=== PATIENT | female | born 1980 | race African-American/Black ===

== ENCOUNTER 2023-07-10 13:39 | Outpatient (AMB) | payer OTHER, SELFPAY ==
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
[2023-07-10 13:48] VITALS: BP 122/70; PULSE 66; O2SAT 97; BMI 23.8
== END 2023-07-10 14:22 | disposition home or self-care (01) ==
PROVIDERS: PCP Internal Medicine; Visit Provider Hospitalist
DX: C34.12 Malignant neoplasm of upper lobe, left bronchus or lung (principal); R06.09 Other forms of dyspnea
CPT/HCPCS: 99205

== ENCOUNTER → 2023-07-10 13:39 | Outpatient (BNVA) | payer OTHER, SELFPAY | PROVIDERS: PCP Internal Medicine; Visit Provider Hospitalist ==

== ENCOUNTER 2023-09-16 16:00 | Emergency (ER) | payer OTHER, SELFPAY ==
--- NOTE | 2023-09-16 16:10 | ED.GENADULT ---
HPI - General Adult General Chief complaint: Upper Respiratory Symptoms Stated complaint: not feeling well, multiple complaints Time Seen by Provider: 09/16/23 18:25 Source: patient Mode of arrival: ambulatory Limitations: no limitations and language barrier (Welsh-speaking medical librarian utilized) History of Present Illness HPI narrative: Patient is a 42 year old female who presents emergency department for evaluation of upper respiratory symptoms, intermittent productive cough with white/yellow phlegm, nasal congestion, fatigue. Symptom onset 1 week ago. Has multiple ill contacts at home. He did outpatient COVID-19 testing which was negative. Denies fevers, chills, chest pain, shortness of breath, difficulty breathing, nausea vomiting, abdominal pain. Reports history of lung cancer s/p radiation/chemo in remission since September of 2020, had outpatient CT imaging 09/02/2023 which was unremarkable by her report Related Data Home Medications Medication Instructions Recorded Confirmed cetirizine 10 mg tablet 10 mg PO DAILY 07/10/23 citalopram 10 mg tablet 10 mg PO DAILY 07/10/23 latanoprost 0.005 % eye drops 1 drp ophthalmic (eye) BEDTIME 07/10/23 Previous Rx's Medication Instructions Recorded azithromycin 250 mg tablet See Rx Instructions PO .COMPLEX #6 09/16/23 tabs Allergies Allergy/AdvReac Type Severity Reaction Status Date / Time Unable to Assess Allergy Verified 09/16/23 16:12 Review of Systems Review of Systems: Yes all other systems are reviewed and are negative [facility] Past Medical History Attestation statement: The following information was validated with the patient. Source: old records reviewed Medical History Dyspnea Social History (Updated 07/10/23 @ 13:55 by Brooke Gutierrez [place]) Patient Tobacco Use Status: Never used Tobacco Advance Directives: No Advance Directives Information Provided: No Physical Exam ED Vital Signs: Vital Signs - 24 hr 09/16/23 16:12 Temperature 98.3 F Pulse Rate 69 Respiratory Rate 18 Blood Pressure 154/89 H Pulse Oximetry 99 Oxygen Delivery Method Room Air BMI result Body Mass Index 23.4 Appearance: Alert.?Oriented to person, place and time. No acute distress.?Normal affect. Eyes: Pupils equal, round and reactive to light.? ENT: Pharynx minimally erythematous, no exudate, no hypertrophy. Uvula midline. No trismus. No drooling.??Bilateral maxillary sinus tenderness upon palpation Neck: Normal inspection.? Neck supple.?? CVS: Heart sounds normal. Normal heart rate and rhythm.? Pulses normal.?? Respiratory: No respiratory distress.? Lung sounds clear to auscultation bilaterally?? Abdomen: Soft and non-tender. Normoactive bowel sounds. Skin: Skin warm and dry.? Normal skin color.? Extremities: No lower extremity edema.? Neuro: Moves all extremities spontaneously. Sensation intact bilaterally. No focal neuro deficits. Ambulates with normal steady gait. Course Course Course Narrative: This is a rapid medical exam. Deferred additional HPI, ROS, PE to primary provider. 42 yo female with history of lung cancer here with complaints of cough, congestion, fatigue, generalized weakness x 1 week. Multiple sick contacts at home. Negative covid yesterday. Will obtain testing for flu/covid/rsv. Declined CXR VSS Medical Decision Making Medical Decision Making MDM Narrative: Patient is a 42 old female presenting to emergency department for evaluation of upper respiratory symptoms as per HPI. At the time my examination she is overall well-appearing, nontoxic, afebrile. Testing for COVID-19/influenza/RSV has resulted as negative. We discussed the possibility of early pneumonia, patient was offered to have chest x-ray imaging she however declines, would defer to avoid radiation. At this time I think this is reasonable, lung sounds are clear bilaterally she is in no respiratory distress. No hypoxia or tachypnea. She does have bilateral maxillary sinus tenderness upon palpation, concerning for acute sinusitis, I did discuss this with patient, she is requesting treatment with azithromycin as this is been most beneficial for her in the past. She reports that she will return back to emergency department or follow-up with her primary care provider should her symptoms worsen. At this time I feel that she is stable for discharge. Discussed worrisome signs and symptoms that would warrant re-evaluation. Differential Diagnosis Differential Diagnoses: The differential diagnosis associated with the presentation includes (As noted above) Lab Data [facility] Lab Attestation statement: I reviewed the patient's lab results. (As noted above) Labs: Lab Results 09/16/23 Range/Units 16:25 Influenza Type A (PCR) NEGATIVE (Negative) Influenza Type B (PCR) NEGATIVE (Negative) RSV RNA Qual (PCR) NEGATIVE (Negative) SARS-CoV-2 RNA (RT-PCR) NEGATIVE (Negative) External Record Review External record reviewed: Outpatient record Tests considered The following testing was considered but not selected: Chest x-ray as noted above Prescription Management I considered prescription management with: Antibiotic Discharge Plan Discharge Clinical Impression: Sinusitis Patient Disposition: Home, Self-Care Instructions: Sinusitis (ED) Prescriptions: New azithromycin 250 mg tablet See Rx Instructions .ROUTE .COMPLEX Qty: 6 0RF Rx Instructions: For 250 mg dose pack: take 500 mg today (day 1), then 250 mg for 4 days (days 2-5) No Action citalopram 10 mg tablet 10 mg PO DAILY cetirizine 10 mg tablet 10 mg PO DAILY latanoprost 0.005 % drops 1 drp ophthalmic (eye) BEDTIME Interventions: ED Discharge Assessment Last Done: 09/16/23 19:12 Discharge Date/Time: 09/16/23 19:12
[2023-09-16 16:12] VITALS: BP 154/89; PULSE 69; RESP 18; TEMP 36.8; O2SAT 99; BMI 23.4
--- NOTE | 2023-09-16 16:26 | MHC.EDTECH ---
Patient rsv /covid swab collected and sent to lab .
[2023-09-16 17:10] LABS: Influenza A PCR NEGATIVE (Negative); Influenza B PCR NEGATIVE (Negative); Resp Syncy Virus RNA Qual PCR NEGATIVE (Negative); SARS COV2 PCR INHOUSE NEGATIVE (Negative)
== END 2023-09-16 19:12 | disposition home or self-care (01) ==
PROVIDERS: Nurse Practitioner Family; Emergency Provider Emergency Medicine; PCP Internal Medicine
DX: J32.9 Chronic sinusitis, unspecified (principal); R05.9 Cough, unspecified; R09.81 Nasal congestion; Z20.822 Contact with and (suspected) exposure to COVID-19; Z20.828 Contact with and (suspected) exposure to other viral communicable diseases
CPT/HCPCS: 0241U; 99282; 99283

== ENCOUNTER 2024-11-17 11:08 | Outpatient (REF) | payer OTHER, SELFPAY ==
[2024-11-18 10:54] LABS: IgA 230 mg/dL (47-310); IgG 1257 mg/dL (600-1640); IgM 94 mg/dL (50-300)
[2024-11-19 11:19] LABS: Immunoglobulin E 70 kU/L (<OR=114)
== END 2024-11-17 11:09 | disposition home or self-care (01) ==
LOC: HO.LAB 11:08
PROVIDERS: PCP Internal Medicine; Visit Provider Hospitalist
DX: C34.12 Malignant neoplasm of upper lobe, left bronchus or lung (principal); R06.09 Other forms of dyspnea; Z92.3 Personal history of irradiation; Z92.21 Personal history of antineoplastic chemotherapy; Z79.899 Other long term (current) drug therapy; Z79.69 Long term (current) use of other immunomodulators and immunosuppressants
CPT/HCPCS: 36415; 82784; 82785; 86787; 99212

== ENCOUNTER 2024-11-17 11:08 | Outpatient (AMB) | payer OTHER, SELFPAY ==
[2024-11-17 11:22] VITALS: BP 130/82; PULSE 60; O2SAT 99; BMI 24.0
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
== END 2024-11-17 12:00 | disposition home or self-care (01) ==
PROVIDERS: PCP Internal Medicine; Visit Provider Hospitalist
DX: C34.12 Malignant neoplasm of upper lobe, left bronchus or lung (principal); R06.09 Other forms of dyspnea
CPT/HCPCS: 99214; G2211

== ENCOUNTER → 2024-11-29 10:58 | Outpatient (BNV) | payer OTHER, SELFPAY | PROVIDERS: PCP Internal Medicine; Visit Provider Internal Medicine | DX: I36.1 Nonrheumatic tricuspid (valve) insufficiency (principal) | CPT/HCPCS: 93306 ==

== ENCOUNTER 2025-03-09 10:09 | Outpatient (AMB) | payer OTHER, SELFPAY ==
[2025-03-09 10:12] VITALS: BP 134/72; PULSE 64; O2SAT 100; BMI 24.0
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
--- OUTSIDE RECORDS SUMMARY | 2025-03-09 11:08 | XMS_ITS | Clinical Summary ---
Author Organization [facility] Address [address] [place] [address] Care Team Providers Care Pot Liner Name Role Phone Unavailable Primary Care Provider Unavailabl e Allergies Active Allergy Reactions Criticality Noted Date Comments Amlodipine Unknown 05/13/2017 Other reaction(s): Other (See Comments), rash and numbness onn whole body Bad circulation & sob, weakness in arms Bad circulation & sob, weakness in arms Bad circulation & sob, weakness in arms Bad circulation & sob, weakness in arms Hydrochlorothiazide Rash,Unknown Low 05/11/2017 Other reaction(s): Rash/Dermatitis Hydrochlorothiazide W-Spironolactone Cough 11/17/2022 Lisinopril 02/01/2021 Other reaction(s): cough for more than 3 months Metoprolol Unknown 09/19/2019 Other reaction(s): Other (See Comments) Medications chlorhexidine (Periogard) 0.12 % solution Place 15 mL into mouth between cheek and gum every 12 (twelve) hours. 05/22/2022 Active ibuprofen 800 MG tablet Take 1 tablet by mouth every 8 (eight) hours. 08/05/2022 Active losartan (Cozaar) 25 MG tablet Take 1 tablet by mouth in the morning. Active Sodium Fluoride (PreviDent) 1.1 % gel brush on teeth two times a day ( am and before bedtime) 08/14/2022 Active Social History Tobacco Use Types Packs/Day Years Used Date Smoking Tobacco: Never Smokeless Tobacco: Never Tobacco Cessation:Counseling Given: Not Answered Alcohol Use Standard Drinks/Week Comments Never 0 (1 standard drink = 0.6 oz pur e alcohol) Comments Unknown Sex and Gender Information Value Date Recorded Sex Assigned at Female 08/25/2022 10:33 AM EDT Legal Sex Female 10:33 AM EDT Gender Identity Female 08/25/2022 10:33 AM EDT Sexual Orientation Don't know 08/25/2022 10 :33 AM EDT Plan of Treatment Health Maintenance Due Date Last Done Comments CT Colonography 1978 Dental Oral Exam 1978 Dental Prophylaxis 1978 Dental X-Ray: Bitewings 1978 Dental X-Ray: Full Mouth 1978 Depression Screening 1978 FIT DNA/Cologuard 1978 FIT 1978 FOBT 1978 HIV Screening 1978 Lipid Panel 1978 SDOH Screening 1978 Sigmoidoscopy 1978 Alcohol/Substance Use Screening 1990 Family Planning (PISQ) 1993 Hepatitis C Screening 1996 Hepatitis B Vaccines (1 of 3 - 19+ 3-dose series) 1997 Pap Smear 12/27/1999 Cervical Cancer Screening 2008 HPV/Cotest 2008 Mammogram 2018 Tobacco Screening 11/17/2023 11/17/2022 COVID-19 Vaccine (3 - 2023-2 5 season) 2024 10/29/2021, 09/28/2021 Influenza Vaccine (#1) 2024 Zoster Vaccines (1 of 2) 2028 DTaP/Tdap/Td Vaccines (2 - T d or Tdap) 06/03/2030 06/03/2020 Colonoscopy 07/21/2032 07/21/2022 Colorectal Cancer Screening 07/21/2032 RSV Patients and Patients Aged 60 years or older (1 - 1-dose 75+ series) 2053 HIB Vaccines Aged Out No longer eligi ble based on patient's age to complete this topic HPV Vaccines Aged Out No longer eligi ble based on patient's age to complete this topic Hepatitis A Vaccines Aged Out No long er eligible based on patient's age to complete this topic IPV Vaccines Aged Out No longer eligi ble based on patient's age to complete this topic Meningococcal B Vaccine Aged Out No l onger eligible based on patient's age to complete this topic Meningococcal Vaccine Aged Out No amrita carly eligible based on patient's age to complete this topic Pneumococcal Vaccine: Pediatrics (0 to 5 Years) and At-Risk Patients (6 to 49) Years) Aged Out No longer eligible b ased on patient's age to complete this topic RSV under 20 months Aged Out No longe r eligible based on patient's age to complete this topic Rotavirus Vaccines Aged Out No longer eligible based on patient's age to complete this topic Insurance [place]
--- OUTSIDE RECORDS SUMMARY | 2025-03-09 11:08 | XMS_ITS | Encounter Summary ---
Author Organization [facility] Address [address] [place] [address] Care Team Providers Care Gas Turbine Assembler Name Role Phone Unavailable Primary Care Provider Unavailabl e Encounter Details Date Type Department Care Team (Latest Contact Info) Description 07/15/2022 Abstract [facility] CONVERSIONS Dental, Provider, DDS Social History Tobacco Use Types Packs/Day Years Used Date Smoking Tobacco: Never Assessed Comments Unknown Sex and Gender Information Value Date Recorded Sex Assigned at Female 08/25/2022 10:33 AM EDT Legal Sex Female 10:33 AM EDT Gender Identity Female 08/25/2022 10:33 AM EDT Sexual Orientation Don't know 08/25/2022 10 :33 AM EDT documented as of this encounter Plan of Treatment Not on file documented as of this encounter Visit Diagnoses Not on filedocumented in this encounter
--- OUTSIDE RECORDS SUMMARY | 2025-03-09 11:08 | XMS_ITS | Clinical Summary ---
[facility] Address [address] [place] [phone] Phone Care Team Providers Care Collection Advisor Name Role Phone Jason Godinez MD Primary Care Provider [phone] Allergies Active Allergy Reactions Criticality Noted Date Comments Amlodipine 05/13/2017 Bad circulation & sob, weakness in arms Hydrochlorothiazide Rash 05/11/2017 Metoprolol 09/19/2019 Medications cetirizine (ZyrTEC) 10 mg tablet TAKE 1 TABLET BY MOUTH DAILY NEEDED FOR ALLERGIES. 09/14/2023 Active hydrOXYzine HCL (ATARAX) 10 mg tablet Take 1 Tablet by mouth at bedtime as needed for Anxiety (insomnia). 07/06/2024 Active citalopram (CeleXA) 20 mg tablet Take 1 tablet (20 mg total) by mouth 1 (one) time each day in the morning. 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 [facility] onc - bronch/brushings showed adenoCA. Dr Garcia, Dr Urena, rad onc Adjustment disorder with anxiety 12/31/2019 Iron deficiency anemia 06/06/2019 Naheed's thyroiditis 06/02/2019 Heart murmur on physical examination 11/17/2017 Personal history of other specified conditions 0 11/17/2017 Overview (10/05/2024): Urethral stenosis Benign essential hypertension 03/16/2017 Thyroid nodule 03/16/2017 Encounters Date Type Department Care Team Description 01/31/2025 9:00 AM EDT Office Visit [address] [phone] Jason Godinez MD Routine physical examination (Primary Dx); Iron deficiency anemia, unspecified iron deficiency anemia type; Vitamin D insufficiency; Screening for diabetes mellitus; Screening, lipid; Primary lung adenocarcinoma, left (CMS/HCC V24, CMS/HCC V28); Chronic cough 01/10/2025 3:30 PM EDT - 01/10/2025 11:59 PM EDT Hospital Encounter [address] [phone] Chronic pain of left heel Discharge Disposition: Home or Self Care 01/10/2025 3:00 PM EDT Office Visit [address] [phone] Stephanie Simmons PA Chronic pain of left heel (Primary Dx); Screening-pulmonary TB 01/09/2025 9:45 AM EDT Office Visit [facility] [address] [place] [address] Seema Vaughan, KAISERM Encounter for annual routine gynecological examination (Primary Dx) 01/06/[address] [phone] Jason Godinez MD TB Test from Last 3 Months Immunizations Name Administration Dates Next Due PPD Test 11/09/2019 [place] SARS-CoV-2 COVID-19, mRNA, LNP-S, preservative free 10/29/2021,09/28/2021 Surgical History Surgery Date Site/Laterality Comments TUBAL LIGATION PROCEDURE: HISTORICAL TUBAL LIGATION SECTION PROCEDURE: HISTORICAL ; COMMENT: x2 CYSTOSCOPY 2011 PROCEDURE: [place] CYSTOURETHROSCOPY; COMMENT: about 2011; in [place] OTHER SURGICAL HISTORY 02/2021 Right PROCEDURE: BREAST MASS CORE BIOPSY SPCMN PATHOLGY EXAM; COMMENT: benign- OTHER SURGICAL HISTORY PROCEDURE: PULMONOLOGY BRONCHOSCOPY OTHER SURGICAL HISTORY 12/2022 Left PROCEDURE: BREAST MASS CORE BIOPSY SPCMN PATHOLGY EXAM; COMMENT: benign calicifications Medical History Medical History Date Comments HTN (hypertension) DX:HTN (hyper tension) Urethral stenosis 11/17/2017 DX:Urethral st enosis Heart murmur on physical examination 11/17/2017 DX:Heart murmur on physical examination Thyroid nodule 03/16/2017 DX:Thyroid nodul e Benign essential hypertension 03/16/2017 DX :Benign essential hypertension Prematurity DX:Prematurity; COMMENT: born at 6 mos AOG, weighed 1.5 lb at 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 Iron deficiency anemia 06/06/2019 DX:Iron d eficiency anemia H/O: lung cancer 06/2020 DX:H/O: lung ca ncer Chicken pox 09/2024 Family History Medical History Relation Name Comments Neurological Disorder Father Hypertension Mother DM Breast cancer Neg Hx Colon cancer Neg Hx Ovarian cancer Neg Hx Relation Name Status Comments Father Alive Mother Alive Social History Tobacco Use Types Packs/Day Years Used Date Smoking Tobacco: Never Smokeless Tobacco: Never Tobacco Cessation:Counseling Given: Not Answered Alcohol Use Standard Drinks/Week Comments Not Currently 0 (1 standard drink = 0.6 oz pur e alcohol) Housing Instability Answer Date Recorde d Are you worried that in the next 2 months you may not have stable housing? No 01/31/2025 Food Access & Nutrition Answer Date Rec orded Do you have access to a vari ety of food including fruits and vegetables? Yes 01/31/2025 Access to Healthcare Answer Date Record ed Within the last 3 months, nicko schuster many times did you visit the emergency department for your medical care? 0 01/31/2025 Health Literacy Answer Date Recorded How often do you need to hav e someone help you when you read instructions, pamphlets, or other written material from your doctor or pharmacy? Never 01/31/2025 Caregiver: How often do you need to have someone help you when you read instructions, pamphlets, or other written material from your doctor or pharmacy? Not on file 01/31/2025 Financial Risk Answer Date Recorded How hard is it for you to pa y for the very basics like food, housing, medical care, and air conditioning / heating? Not very hard 01/31/2025 Transportation Answer Date Recorded Has the lack of transportati on kept you from meetings, work, or from getting things needed for daily living? No Has the lack of transportati on kept you from medical appointments or from getting medications? No 01/31/2025 Social Isolation Answer Date Recorded How often do you feel lonely or isolated from those around you? Sometimes 01/31/2025 Food Risk Answer Date Recorded Within the past 12 months we worried whether our food would run out before we got money to buy more. Never true 01/31/2025 Within the past 12 months th e food we bought just didn't last and we didn't have money to get more. Never true 01/31/2025 Dependent Care Answer Date Recorded Do you need help finding or paying for care for your loved ones. For example, child & adolescent psychiatrist or elderly care for an older adult? No 01/31/2025 Education Answer Date Recorded Do you think completing more education or training, like finishing a GED, going to college, or learning a trade, would be helpful for you? Yes 01/31/2025 Employment and Income Answer Date Recor ded During the last four weeks, have you been actively looking for work? Yes 01/31/2025 Living Situation Answer Date Recorded What is your living situation? 0 01/31/2025 Comments No Sex and Gender Information Value Date Recorded Sex Assigned at Not on file Legal Sex Female 10:06 AM EST Gender Identity Not on file Sexual Orientation Not on file Obstetrics History Para Term AB IAB SAB Ectopic Multiple Livin g Live Births 2 2 2 2 2 Date Outcome GA Total Labor Labor/2nd/3rd Weight Sex Type Anes PTL Leslie A1 A5 Name Clin Term Vag-S pont Living Term Vag-S pont Living Last Filed Vital Signs Vital Sign Reading Time Taken Comments Blood Pressure 114/70 01/31/2025 9:10 AM EDT Pulse 64 01/31/2025 9:10 AM EDT Temperature 36.8 ??C (98.3 ??F) 01/31/2025 9:10 AM ED T Respiratory Rate - - Oxygen Saturation 98% 10/12/2024 11:05 AM EST Inhaled Oxygen Concentration - - Weight 63 kg (139 lb) 01/31/2025 9:10 AM EDT Height 158.1 cm (5' 2.25 ) 01/31/2025 9:10 AM ED T Body Mass Index 25.22 01/31/2025 9:10 AM EDT Plan of Treatment Upcoming Encounters Date Type Department Care Team (Late st Contact Info) Description 03/29/2025 1:00 PM EDT Consult Orthopedic Surgery - [place] [id number] [phone] Gerard Jose, DPM [address] [address] 08/14/2025 4:30 PM EDT Office Visit Adult Medicine [address] [phone] Jason Godinez MD [address] [place] [phone] Health Maintenance Due Date Last Done Comments Hepatitis B Vaccines (1 of 3 - 19+ 3-dose series) 1997 Pneumococcal Vaccine: Pediatrics (0 to 5 Years) and At-Risk Patients (6 to 64 Years) (1 of 2 - PCV) 1997 COVID-19 Vaccine (3 - Pfizer risk series) 11/26/2021 10/29/2021, 09/28/2021 Colorectal Cancer Screening: Colonoscopy 10/04/2022 HIV Screening 10/04/2022 Hepatitis C Screening 10/04/2022 Breast Cancer Screening 02/21/2023 02/21/2021 Influenza Vaccine (Season Ended) 2025 Hypertension/CHF/CAD Annual BMP Blood Test 11/16/2025 11/16/2024, 06/15/2024, 06/15/2024, Additional history exists Depression Screening 01/31/2026 01/31/2025, 05/10/20 Social Influencers of Health Screening 01/31/2026 01/31/2025 Cholesterol Screening (Lipid Panel) 03/09/2028 03/09/2023 Cervical Cancer Screening: HPV 01/09/2030 01/09/2025, 04/17/2021 DTaP,Tdap,and Td Vaccines (2 - Td or Tdap) 06/03/2030 06/03/2020 Varicella Vaccines Aged Out 10/12/2024 No longer eligible based on patient's age to complete this topic HIB Vaccines Aged Out No longer eligi [...] on patient's age to complete this topic MMR Vaccines Aged Out No longer eligi ble based on patient's age to complete this topic Meningococcal ACWY Vaccine Aged Out N o longer eligible based on patient's age to complete this topic Meningococcal B Vaccine Aged Out No l onger eligible based on patient's age to complete this topic RSV Immunization Patients Under 20 months Aged Out No longer eligible based on patient's age to complete this topic Procedures Procedure Name Priority Date/Time Associated Diagnosis Comments INTERFERON GAMMA INTERPRETATION Routine 01/10/2025 4:26 PM EDT Screening-pulmonary TB INTERFERON GAMMA ANTIGEN 2 Routine 01/10/2025 4:26 PM EDT Screening-pulmonary TB INTERFERON GAMMA ANTIGEN 1 Routine 01/10/2025 4:26 PM EDT Screening-pulmonary TB INTERFERON GAMMA MITOGEN Routine 01/10/2025 4:26 PM EDT Screening-pulmonary TB INTERFERON GAMMA NIL Routine 01/10/2025 4:26 PM EDT Screening-pulmonary TB INTERFERON GAMMA FOR TB, QUALITATIVE Routine 01/10/2025 4:26 PM EDT Screening-pulmonary TB XR FOOT 3+ VIEWS LEFT Routine 01/10/2025 3:52 PM EDT Chronic pain of left heel PAP SMEAR Routine 01/09/2025 11:26 AM EDT Encounter for annual routine gynecological examination HPV WITH REFLEX GENOTYPE Routine 01/09/2025 11:26 AM EDT Encounter for annual routine gynecological examination ANNUAL BMP BLOOD TEST Routine 06/15/2024 DEPRESSION SCREENING Routine 05/10/2024 LIPID PANEL Routine 03/09/2023 DX MAMMO INCL CAD BI Routine 02/21/2021 10:39 AM EDT Unspecified lump in the right breast, upper outer quadrant from Last 3 Months or Most Recently Relevant to Health Maintenance Results * Interferon gamma interpretation (01/10/2025 4:26 PM EDT) Quantiferon Plus Interpretation Negative Negative LAB CHEMISTRY METHOD 01/12/2025 9:[address] [facility] Blood Venous blood specimen / Unknown Venipuncture / Unknown 01/10/2025 4:26 PM EDT 01/10/2025 4:26 PM EDT Stephanie SPANGLER LAB BLOOD ORDERABLES Final Re sult [facility] [address] [place] [address], [place] [phone] * Interferon gamma antigen 2 (01/10/2025 4:26 PM EDT) Blood Venous blood specimen / Unknown Venipuncture / Unknown 01/10/2025 4:26 PM EDT 01/10/2025 4:26 PM EDT us Stephanie SPANGLER LAB BLOOD ORDERABLES Final Re sult [facility] [address] [place] [address], [place] [phone] * Inteferon gamma antigen 1 (01/10/2025 4:26 PM EDT) Blood Venous blood specimen / Unknown Venipuncture / Unknown 01/10/2025 4:26 PM EDT 01/10/2025 4:26 PM EDT us Stephanie SPANGLER LAB BLOOD ORDERABLES Final Re sult Performing Organization Address City/[facility]/ZIP Co de Phone Number [facility] [address] [place] [address], [place] [phone] * Interferon gamma mitogen (01/10/2025 4:26 PM EDT) Blood Venous blood specimen / Unknown Venipuncture / Unknown 01/10/2025 4:26 PM EDT 01/10/2025 4:26 PM EDT us Stephanie SPANGLER LAB BLOOD ORDERABLES Final Re sult Performing Organization Address City/[facility]/ZIP Co de Phone Number [facility] [address] [place] [address], [place] [phone] * Interferon gamma NIL (01/10/2025 4:26 PM EDT) Blood Venous blood specimen / Unknown Venipuncture / Unknown 01/10/2025 4:26 PM EDT 01/10/2025 4:26 PM EDT us Stephanie SPANGLER LAB BLOOD ORDERABLES Final Re sult Performing Organization Address City/[facility]/ZIP Co de Phone Number [facility] [address] [place] [address], [place] [phone] * XR Foot 3+ Views Left (01/10/2025 3:52 PM EDT) Anatomical Region Laterality Modality Lower Extremities, Foot Left Radiogra phic Imaging 01/11/2025 8:31 AM EDT Impressions 01/11/2025 8:34 AM EDT Calcaneal spurring. POS - [id number] -------- FINAL REPORT -------- Dictated By: Ariadne Ontiveros Dictated Date: 01/11/2025 08:31 ET Assigned Physician: Ariadne Ontiveros Reviewed and Electronically Signed By: Ariadne Ontiveros Signed Date: 01/11/2025 08:34 ET Workstation ID: [id number] Transcribed By: Self Edit Transcribed Date: 01/11/2025 08:31 ET Narrative 01/11/2025 8:34 AM EDT EXAM: Left foot x-ray HISTORY: Chronic left heel pain. COMPARISON: None FINDINGS: 3 weightbearing views were performed. No evidence of an acute fracture or malalignment. ??Joint spaces are maintained. ??No destructive bone lesion. ??Small plantar calcaneal spur and tiny posterior calcaneal spur. Procedure Note Ariadne Ontiveros MD - 01/11/2025 EXAM: Left foot x-ray HISTORY: Chronic left heel pain. COMPARISON: None FINDINGS: 3 weightbearing views were performed. No evidence of an acute fracture or malalignment. Joint spaces aremaintained. No destructive bone lesion. Small plantar calcaneal spur andtiny posterior calcaneal spur. IMPRESSION: Calcaneal spurring. POS - [id number] -------- FINAL REPORT -------- Dictated By: Ariadne Ontiveros Dictated Date: 01/11/2025 08:31 ET Assigned Physician: Ariadne Ontiveros Reviewed and Electronically Signed By: Ariadne Ontiveros Signed Date: 01/11/2025 08:34 ET Workstation ID: [id number] Transcribed By: Self Edit Transcribed Date: 01/11/2025 08:31 ET us Stephanie SPANGLER IMG XR PROCEDURES Final Resul t * HPV with reflex genotype (01/09/2025 11:26 AM EDT) HPV Negative Negative LAB MICROBIOLOGY METHOD 01/11/2025 2:07 PM EDT [facility] Brushing/Spatula Cervix uteri structure / Unknown 01/09/2025 11:26 AM EDT 01/10/2025 6:55 AM EDT Seema Vaughan CN LAB MOLECULAR DIAGNOSTI CS ORDERABLES Final Result [facility] [address] [place] [address], * Pap smear (01/09/2025 11:26 AM EDT) Interpretation Negative for intraepithelial lesion or malignancy 01/13/2025 10:[address] [facility] General Categorization Negative 01/13/2025 10:[address] [facility] LMP 12/22/2024 01/13/2025 10:[address] [facility] Specimen Adequacy Satisfactory for evaluation, endocervical/danielle sformation zone component absent 01/13/2025 10:[address] [facility] Pap Methodology Liquid Based Pap Test 01/13/2025 10:[address] [facility] Disclaimer The Pap test is a screening test which carries an inherent false negative rate. These test results should be correlated with the patient's clinical findings and history. This Pap test was processed using an automated screening system. Technical cytopathology services provided by [facility], at [address] [place] [address] (CLIA # [id number]/Ceci Ohara MD, Lining Brusher.) 01/13/2025 10:[address] [facility] Console Pap Interpretation Reported 01/13/2025 10:40 AM [facility] Brushing/Spatula Cervix uteri structure / Unknown 01/09/2025 11:26 AM EDT 01/09/2025 11:26 AM EDT Seema Vaughan [facility] CYTOLOGY ORDERABLES Final Result [facility] [address] [place] [address], * Annual BMP Blood Test (06/15/2024) Annual BMP Blood Test abstracted Historical Provider MD HEALTH MAINTENANCE Final Result * Depression Screening (05/10/2024) Pathologist [facility] Depression Screening abstracted Historical Provider MD HEALTH MAINTENANCE Final Result * Lipid panel (03/09/2023) Pathologist [facility] LDL/HDL Ratio 2 0 - 4 Triglycerides 44 0 - 150 mg/dL Cholesterol 124 0 - 200 mg/dL HDL 78 >=40 mg/dL LDL Cholesterol 38 0 - 100 mg/dL Blood Venous blood specimen / Unknown Historical Provider MD LAB BLOOD ORDERABLES Krissy l Result * DX MAMMO INCL CAD BI (02/21/2021 10:39 AM EDT) Anatomical Region Laterality Modality Mammography 02/07/2021 3:43 PM EDT Narrative 02/21/2021 10:58 AM EDT This is a summary report. The complete report is available in the patient's medical record. If you cannot access the medical record, please contact the sending organization for a detailed fax or copy. Bilateral mammogram. ??Limited ultrasound of the right upper outer breast. History 39 years old female with lump in the right breast at 10:00. Routine images of both breast were obtained as well as spot compression views of the right breast in CC and MLO projection as well as straight lateral view of the right breast. Breast tissue is heterogeneously dense limiting sensitivity of mammography. ??There is asymmetric opacity in the right upper outer breast corresponding to the palpable abnormality. ??There is no suspicious calcifications or architectural distortion. Limited ultrasound of the right breast was performed with attention to the area pointed by the patient at 10:00, 6 cm from the nipple. ??There is hypoechoic solid mass measuring 2.1 x 1.1 x 1.8 cm which revealed some vascularity on color Doppler examination. ??Ultrasound-guided core biopsy with a clip placement is recommended. ??Findings were explained to the patient. ??Appointment for the biopsy is scheduled. Conclusions: Palpable abnormality corresponds to solid mass as detailed. ??Biopsy is recommended. BI-RADS 4, suspicious abnormality. Procedure Note María Sweeney MD - 10/14/2022 This is a summary report. The complete report is available in thepatient's medical record. If you cannot access the medical record, pleasecontact the sending organization for a detailed fax or copy. Bilateral mammogram. Limited ultrasound of the right upper outerbreast. History 39 years old female with lump in the right breast at 10:00. Routine images of both breast were obtained as well as spot compressionviews of the right breast in CC and MLO projection as well as straightlateral view of the right breast. Breast tissue is heterogeneously dense limiting sensitivity ofmammography. There is asymmetric opacity in the right upper outer breastcorresponding to the palpable abnormality. There is no suspiciouscalcifications or architectural distortion. Limited ultrasound of the right breast was performed with attention to thearea pointed by the patient at 10:00, 6 cm from the nipple. There ishypoechoic solid mass measuring 2.1 x 1.1 x 1.8 cm which revealed somevascularity on color Doppler examination. Ultrasound-guided core biopsywith a clip placement is recommended. Findings were explained to thepatient. Appointment for the biopsy is scheduled. Conclusions: Palpable abnormality corresponds to solid mass as detailed.Biopsy is recommended. BI-RADS 4, suspicious abnormality. us Angelina Plummer MD IMG BI PROCEDURES Final Res ult from Last 3 Months or Most Recently Relevant to Health Maintenance Insurance Care Teams Collection Advisor Relationship Specialty Start Date End Date Jason Godinez MD [address] [place] [id number] PCP - General Internal Medicine 04/17/21
== END 2025-03-09 10:37 | disposition home or self-care (01) ==
LOC: HO.HPS 10:10
PROVIDERS: PCP Internal Medicine; Visit Provider Hospitalist
DX: C34.12 Malignant neoplasm of upper lobe, left bronchus or lung (principal); R06.09 Other forms of dyspnea; J01.80 Other acute sinusitis
CPT/HCPCS: 99214; G2211

== ENCOUNTER → 2025-03-09 10:09 | Outpatient (BNVA) | payer OTHER, SELFPAY | PROVIDERS: PCP Internal Medicine; Visit Provider Hospitalist | DX: C34.12 Malignant neoplasm of upper lobe, left bronchus or lung (principal); R06.09 Other forms of dyspnea; J01.80 Other acute sinusitis | CPT/HCPCS: 99212 ==

== ENCOUNTER 2025-09-08 10:15 | Outpatient (AMB) | payer OTHER, SELFPAY ==
[2025-09-08 10:18] VITALS: BP 118/77; PULSE 65; O2SAT 97; BMI 24.9
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
--- OUTSIDE RECORDS SUMMARY | 2025-09-08 12:53 | XMS_ITS | Encounter Summary ---
Author Organization [facility] Address [address] [facility] [address] [place] [address] Phone Care Team Providers Care Roller Coaster Engineer Name Role Phone Lenny Shook MD Unavailable [phone] Ronnell Antunez MD Unavailable [phone] Jason Godinez MD Primary Care Provider + Josh White MD, PhD Unavailable [phone] Magnolia Madison MD Unavailable [phone] Encounter Details Date Type Department Care Team (Late st Contact Info) Description 11/20/2021 Procedure Pass [address] [address] Social History Tobacco Use Types Packs/Day Years Used Date Smoking Tobacco: Never Smokeless Tobacco: Never Alcohol Use Standard Drinks/Week Comments Never 0 (1 standard drink = 0.6 oz pur e alcohol) Comments Unknown Sex and Gender Information Value Date Recorded Sex Assigned at Female 07/09/2021 5:43 PM EDT Legal Sex Female 4:21 PM EST Gender Identity Female 07/09/2021 5:43 PM EDT Sexual Orientation Straight 07/09/2021 5: 43 PM EDT documented as of this encounter Plan of Treatment Upcoming Encounters Date Type Department Care Team (Late st Contact Info) Description 05/17/2025 Procedure Pass [address] [address] 11/23/2025 10:30 AM EST Blood Draw Laboratory Services, [facility] [place] at [address] [address] Magnolia Madison MD [address] [place] [address] [email or web address] 11/23/2025 11:30 AM EST Appointment [address] [address] Ronnell Antunez MD [address] [place] [address] [email or web address] documented as of this encounter Visit Diagnoses Not on filedocumented in this encounter Care Teams Roller Coaster Engineer Relationship Specialty Start Date End Date Jason Godinez MD [address] [place] [address] PCP - General Internal Medicine 06/17/21 Lenny Shook MD [address] [place] [address] Division [place] [address] [email or web address] Thoracic Surgery 11/09/20 Ronnell Antunez MD [address] [place] [address] Durga@[email or web address] Medical Oncology 02/08/21 05/21/25 Josh White MD, PhD [address] [place] [address] [email or web address] Thoracic Surgery 03/18/23 Magnolia Madison MD [address] [place] [address] [email or web address] Medical Oncology 05/22/25 documented as of this encounter Additional Source Comments The information contained in this document represents components of the legal health record. It is not the complete legal health record.[facility]
--- OUTSIDE RECORDS SUMMARY | 2025-09-08 12:53 | XMS_ITS | Encounter Summary ---
Author Organization [facility] Address [address] [facility] [address] [place] [address] Phone Care Team Providers Care Social Worker Health Services Name Role Phone Lenny Shook MD Unavailable [phone] Ronnell Antunez MD Unavailable [phone] Jason Godinez MD Primary Care Provider + Josh White MD, PhD Unavailable [phone] Magnolia Madison MD Unavailable [phone] Encounter Details Date Type Department Care Team (Late st Contact Info) Description 06/24/2021 Procedure Pass [address] [address] Social History Tobacco Use Types Packs/Day Years [...] st Contact Info) Description 05/17/2025 Procedure Pass [address] [address] 11/23/2025 10:30 AM EST Blood Draw Laboratory Services, [facility] [place] at [address] [address] Magnolia Madison MD [address] [place] [address] [email or web address] 11/23/2025 11:30 AM EST Appointment [address] [address] Ronnell Antunez MD [address] [place] [address] [email or web address] documented as of this encounter Visit Diagnoses Not on filedocumented in this encounter Care Teams Social Worker Health Services Relationship Specialty Start Date End Date Jason Godinez MD [address] [place] [address] PCP - General Internal Medicine 06/17/21 Lenny Shook MD [address] [place] [address] Division [place] [address] [email or web address], [facility] Thoracic Surgery 11/09/20 Ronnell Antunez MD [address] [place] [address] [email or web address] Medical Oncology 02/08/21 05/21/25 Josh White MD, PhD [address] [place] [address] [email or web address], [facility] Thoracic Surgery 03/18/23 Magnolia Madison MD [address] [place] [address] [email or web address] Medical Oncology 05/22/25 documented as of this encounter Additional Source Comments The information contained in this document represents components of the legal health record. It is not the complete legal health record.[facility]
--- OUTSIDE RECORDS SUMMARY | 2025-09-08 12:54 | XMS_ITS ---
Author Organization [facility] Address [address] [facility] [address] [place] [address] Phone Care Team Providers Care Helper Electrical Name Role Phone Jason Godinez MD Primary Care Provider + Jsoh White MD, PhD Unavailable [phone] Magnolia Madison MD Unavailable [phone] Active Problems Problem Noted Date Diagnosed Date Iron deficiency anemia secon ronaldo to inadequate dietary iron intake 12/05/2021 Malignant neoplasm of upper lobe of left lung Current Treatment and Therapy Plans No current plan information found. Past Treatment and Therapy Plans Oncology Therapy Plan Supplemental Plan Name Start Date Discontinue Date Treatment Medications Discontinue Reason Plan Provider FERUMOXYTOL (FERAHEME) 08/08/2022 01/23/2023 No medications scheduled. a. Therapy Complete Ronnell Antunez MD
--- OUTSIDE RECORDS SUMMARY | 2025-09-08 12:54 | XMS_ITS | Encounter Summary ---
Author Organization [facility] Address [address] [facility] [address] [place] [address] Phone Care Team Providers Care Registered Medical Transcriptionist Name Role Phone Lenny Shook MD Unavailable [phone] Ronnell Antunez MD Unavailable [phone] Jason Godinez MD Primary Care Provider + Josh White MD, PhD Unavailable [phone] Magnolia Madison MD Unavailable [phone] Encounter Details Date Type Department Care Team (Late st Contact Info) Description 07/24/2021 Procedure Pass [address] [address] Social History Tobacco Use Types Packs/Day Years [...] st Contact Info) Description 05/17/2025 Procedure Pass [address] [address] 11/23/2025 10:30 AM EST Blood Draw Laboratory Services, [facility] [place] at [address] [address] Magnolia Madison MD [address] [place] [address] [email or web address] 11/23/2025 11:30 AM EST Appointment [address] [address] Ronnell Antunez MD [address] [place] [address] [email or web address] documented as of this encounter Visit Diagnoses Not on filedocumented in this encounter Care Teams Registered Medical Transcriptionist Relationship Specialty Start Date End Date Jason Godinez MD [address] [place] [address] PCP - General Internal Medicine 06/17/21 Lenny Shook MD [address] [place] [address] Division [place] [address] [email or web address] Thoracic Surgery 11/09/20 Ronnell Antunez MD [address] [place] [address] [email or web address] Medical Oncology 02/08/21 05/21/25 Josh White MD, PhD [address] [place] [address] [email or web address] Thoracic Surgery 03/18/23 Magnolia Madison MD [address] [place] [address] [email or web address] Medical Oncology 05/22/25 documented as of this encounter Additional Source Comments The information contained in this document represents components of the legal health record. It is not the complete legal health record.[facility]
--- OUTSIDE RECORDS SUMMARY | 2025-09-08 12:55 | XMS_ITS | Encounter Summary ---
Author Organization [facility] Address [address] [place] [address] Care Team Providers Care Repairer Evaporator Name Role Phone Jason Godinez MD Primary Care Provider [phone] Encounter Details Date Type Department Care Team ([facility] Contact Info) Description 08/21/2025 Results Follow-Up Obstetrics and Gynecology - [address] [phone] Taylor Mason, [address] [phone] Social History Tobacco Use Types Packs/Day Years Used Date Smoking Tobacco: Never Smokeless Tobacco: Never Alcohol Use Standard Drinks/Week Comments Not Currently [...] Record ed Within the last 3 months, ho w many times did you visit the emergency [...] care for your loved ones. For example, children's court magistrate or elderly care for an older adult? [...] Date Recorded What is your living situation? Unrecognized valu e 01/31/2025 Comments No Sex and Gender Information Value Date Recorded Sex Assigned at Not on file Legal Sex Female 10:06 AM EST Gender Identity Not on file Sexual Orientation Not on file documented as of this encounter Plan of Treatment Upcoming Encounters Date Type Department Care Team (Late st Contact Info) Description 09/28/2025 1:15 PM EST Office Visit Orthopedic Surgery - [place] [address] [facility] [address] [place] [phone] Gerard Jose, DPVick [address] [facility] [place] [address] [place] [address] documented as of this encounter Visit Diagnoses Not on filedocumented in this encounter Additional Health Concerns Assessment Noted Time PHQ-9 Depression Total Score: 11 025 10:13 AM EDT documented as of this encounter Care Teams Repairer Evaporator Relationship Specialty Start Date End Date Jason Godinez MD [address] [place] [phone] PCP - General Internal Medicine 04/17/21 documented as of this encounter
--- OUTSIDE RECORDS SUMMARY | 2025-09-08 12:55 | XMS_ITS | Encounter Summary ---
Author Organization [facility] Address [address] [facility] [address] [place] [address] Care Team Providers Care Concrete Carpenter Name Role Phone Unavailable Primary Care Provider Unavailabl e Encounter Details Date Type Department Care Team (Latest Contact Info) Description 07/15/2022 Abstract [facility] CONVERSIONS Dental, Provider, DDS Social History Tobacco [...]
--- OUTSIDE RECORDS SUMMARY | 2025-09-08 12:55 | XMS_ITS | Encounter Summary ---
Author Organization [facility] Address [address] [employer] [facility] [address] [place] [address] Phone Care Team Providers Care Speech Therapist Technician Name Role Phone Ronnell Antunez MD Unavailable [phone] Jason Godinez MD Primary Care Provider + Josh White MD, PhD Unavailable [phone] Magnolia Madison MD Unavailable [phone] Encounter Details Date Type Department Care Team (Late st Contact Info) Description 11/15/2024 Procedure Pass [facility] [place] [facility] [place] [address] [address] Social History Tobacco Use Types Packs/Day Years Used Date Smoking Tobacco: Never Smokeless Tobacco: Never Alcohol Use Standard Drinks/Week Comments Never 0 (1 standard drink = 0.6 oz pur e alcohol) Education Answer Date Recorded Are you interested in more education? Not on brian e 02/19/2023 Are you concerned about learning? Not on file 02/19/2023 No 02/19/2023 No 02/19/2023 Digital Access Answer Date Recorded No 03/18/2023 No 03/18/2023 Reliable internet access at home? Not on file 03/18/2023 Device with a working camera? Not on file Intimate Partner Violence Answer Date R ecorded Are you denied basic needs s uch as food, clothing, or medical care? No 02/27/2023 In the past 12 months have y ou been in a relationship with a person who hurts, threatens, or tries to control you? No 02/27/2023 Are you denied basic needs s uch as food, clothing, or medical care? No 02/27/2023 In the past 12 months have y ou been in a relationship with a person who hurts, threatens, or tries to control you? No 02/27/2023 Comments No Sex and Gender Information Value Date Recorded Sex Assigned at Female 07/09/2021 5:43 PM EDT Legal Sex Female 4:21 PM EST Gender Identity Female 07/09/2021 5:43 PM EDT Sexual Orientation Straight 07/09/2021 5: 43 PM EDT documented as of this encounter Plan of Treatment Upcoming Encounters Date Type Department Care Team (Late st Contact Info) Description 05/17/2025 Procedure Pass [address] [address] 11/23/2025 10:30 AM EST Blood Draw Laboratory Services, [address] [address] Magnolia Madison MD [address] [place] [address] [email or web address] 11/23/2025 11:30 AM EST Appointment [address] [address] Ronnell Antunez MD [address] [place] [address] [email or web address] documented as of this encounter Visit Diagnoses Not on filedocumented in this encounter Care Teams Speech Therapist Technician Relationship Specialty Start Date End Date Jason Godinez MD [address] [place] [address] PCP - General Internal Medicine 06/17/21 Ronnell Antunez MD [address] [place] [address] [email or web address] Medical Oncology 02/08/21 05/21/25 Josh White MD, PhD [address] [place] [address] [email or web address] Thoracic Surgery 03/18/23 Magnolia Madison MD [address] [place] [address] [email or web address] Medical Oncology 05/22/25 documented as of this encounter Additional Source Comments The information contained in this document represents components of the legal health record. It is not the complete legal health record.[facility]
--- OUTSIDE RECORDS SUMMARY | 2025-09-08 12:55 | XMS_ITS | Clinical Summary ---
Author Organization [facility] Address [address] [facility] [address] [place] [address] Phone Care Team Providers Care Twitchell Operator Name Role Phone Jason Godinez MD Primary Care Provider + Josh White MD, PhD Unavailable Magnolia Madison MD Unavailable [phone] Allergies Active Allergy Reactions Criticality Noted Date Comments Amlodipine Other (See Comments) 05/13/2017 Bad circulation & sob, weakness in arms Bad circulation & sob, weakness in arms Hydrochlorothiazide Rash,Unknown Low 05/11/2017 Lisinopril 02/01/2021 Cough Metoprolol Other (See Comments) 09/19/2019 Does not recall reaction , thinks headache Perfume 02/20/2023 Very sensitive - gets lung irritation Spironolacton-Hydrochlorot hiaz Cough,Acute Generalized Exanthematous Pustulosis 11/17/2022 Medications cetirizine (ZYRTEC) 10 MG tablet 07/30/2020 Active citalopram (CELEXA) 20 MG tablet Take 1 tablet by mouth every morning. 05/10/2024 Active hydrOXYzine HCL (ATARAX) 10 MG tablet Take 10 mg by mouth every 6 (six) hours as needed for anxiety. 07/06/2024 Active Active Problems Problem Noted Date Diagnosed Date Iron deficiency anemia secon ronaldo to inadequate dietary iron intake 12/05/2021 Malignant neoplasm of upper lobe of left lung Family History Medical History Relation Comments Dementia Father Diabetes Mother Relation Status Comments Father Mother Social History Tobacco Use Types Packs/Day Years [...] Orientation Straight 07/09/2021 5: 43 PM EDT Last Filed Vital Signs Vital Sign Reading Time Taken Comments Blood Pressure 170/60 05/17/2025 11:45 AM EDT Pulse 54 05/17/2025 11:13 AM EDT Temperature 37.2 C (98.9 F) 11/16/2024 4:11 PM EST Respiratory Rate 18 05/17/2025 11:1 3 AM EDT Oxygen Saturation 100% 05/17/2025 11: 13 AM EDT Inhaled Oxygen Concentration - - Weight 64.8 kg (142 lb 13.7 oz) 025 11:13 AM EDT Height 156.5 cm (5' 1.61 ) 11/16/2024 4:11 PM ES T Body Mass Index 26.46 11/16/2024 4:11 PM EST Plan of Treatment Upcoming Encounters Date Type Department Care Team (Late st Contact Info) Description 05/17/2025 Procedure Pass [address] [address] 11/23/2025 10:30 AM EST Blood Draw Laboratory Services, [facility] at [address] [address] Magnolia Madison MD [address] [place] [address] [email or web address] 11/23/2025 11:30 AM EST Appointment [address] [address] Ronnell Antunez MD [address] [place] [address] [email or web address] Health Maintenance Due Date Last Done Comments DEPRESSION SCREENING 1990 HEPATITIS C SCREENING 1996 HIV ONE-TIME SCREENING (18-6 5 YEARS) 1996 PNEUMOCOCCAL VACCINES (0-49 years) (1 of 2 - PCV) 1997 MAMMOGRAM 2018 COLOGUARD 12/27/2023 COLONOSCOPY 12/27/2023 COLORECTAL CANCER SCREENING 12/27/2023 FIT TEST 12/27/2023 FOBT 12/27/2023 SIGMOIDOSCOPY 12/27/2023 VIRTUAL COLONOSCOPY 12/27/2023 PAP SMEAR 04/17/2024 04/17/2021 INFLUENZA VACCINE (#1) 2025 COVID-19 VACCINE (3 - 2024-2 6 season) 2025 10/29/2021, 09/28/2021 LIPID PANEL 03/09/2028 03/09/2023 SCREENING FOR DIABETES 05/17/2028 05/17/2025 Adult Td,Tdap Booster 06/03/2030 06/03/2020 SMOKING STATUS SCREENING (On ce After 26 Yrs) Completed 02/20/2023 HEPATITIS A VACCINES Aged Out No long er eligible based on patient's age to complete this topic HIB VACCINES Aged Out No longer eligi ble based on patient's age to complete this topic IPV VACCINES Aged Out No longer eligi ble based on patient's age to complete this topic MENINGOCOCCAL VACCINES (ACWY) Aged Out No longer eligible based on patient's age to complete this topic MENINGOCOCCAL VACCINES (B) Aged Out N o longer eligible based on patient's age to complete this topic Medical Devices Not on file Insurance [employer] [facility] [employer] [facility] [employer] [address] [place] [address] [employer] [address] [place] [address] [employer] [facility] [employer] [address] [place], [place] [address] [place] [place] [address] [place] [address] [employer] [place] [place] [address] [place] [address] [employer] Advance Directives For more information, please contact: [phone] (9AM - 5PM [place]anna/[place], Thursday-Thursday) Documents on File Type Date Recorded Patient Armed Custom Protection Officer Expl anation Healthcare Proxy 03/04/2023 4:43 PM Care Teams Twitchell Operator Relationship Specialty Start Date End Date Jason Godinez MD [address] [place] [address] PCP - General Internal Medicine 06/17/21 Josh White MD, PhD [address] [place] [address] [email or web address] Thoracic Surgery 03/18/23 Magnolia Madison MD [address] [place] [address] [email or web address] Medical Oncology 05/22/25 Additional Source Comments The information contained in this document represents components of the legal health record. It is not the complete legal health record.[facility]
--- OUTSIDE RECORDS SUMMARY | 2025-09-08 12:55 | XMS_ITS | Encounter Summary ---
Author Organization [facility] Address [address] [place] [address] Care Team Providers Care Deep Submergence Vehicle Crewmember Name Role Phone Jason Godinez MD Primary Care Provider Encounter Details Date Type Department Care Team ([facility] st Contact Info) Description 08/15/2025 Results Follow-Up Adult Medicine [address] [phone] Jason Godinez MD [address] [place] [address] Social History Tobacco Use Types Packs/Day Years [...] for your loved ones. For example, child welfare specialist or elderly care for an older adult? [...] PM EST Office Visit Orthopedic Surgery - [place] [address] [facility] [address] [place] [address] [phone] Gerard Jose, DPM [address] [facility] [address] [place] [address] documented as of this encounter Visit Diagnoses Not on filedocumented in this encounter Additional Health Concerns Assessment Noted Time PHQ-9 Depression Total Score: 11 025 10:13 AM EDT documented as of this encounter Care Teams Deep Submergence Vehicle Crewmember Relationship Specialty Start Date End Date Jason Godinez MD [address] [place] [address] [phone] PCP - General Internal Medicine 04/17/21 documented as of this encounter
--- OUTSIDE RECORDS SUMMARY | 2025-09-08 12:55 | XMS_ITS | Clinical Summary ---
Author Organization [employer] Address [address] [facility] 7t [place] [address] Care Team Providers Care Lodging House Keeper Name Role Phone Unavailable Primary Care Provider [...] Panel 1978 SDOH Screening 1978 Sigmoidoscopy 1978 Disability Screening 1978 Alcohol/Substance Use Screening 1990 Family Planning (PISQ) 1993 Hepatitis C Screening 1996 Hepatitis B Vaccines (1 of 3 - 19+ 3-dose series) 1997 Pap Smear 12/27/1999 Cervical Cancer Screening 2008 HPV/Cotest 2008 Mammogram 2018 Tobacco Screening 11/17/2023 11/17/2022 COVID-19 Vaccine (3 - 2024-2 6 season) 2025 10/29/2021, 09/28/2021 Influenza Vaccine (#1) 2025 Zoster Vaccines (1 of 2) 2028 DTaP/Tdap/Td [...] Years) and At-Risk Patients (6 to 49) Years Aged Out No longer eligible b ased on patient's age to complete this topic RSV under 20 months Aged Out No longe r eligible based on patient's age to complete this topic Rotavirus Vaccines Aged Out No longer eligible based on patient's age to complete this topic Insurance [place] AD[place]
--- OUTSIDE RECORDS SUMMARY | 2025-09-08 12:56 | XMS_ITS | Encounter Summary ---
Author Organization [facility] Address [address] [facility] [address] [place] [address] Phone Care Team Providers Care Air Breaker Operator Name Role Phone Ronnell Antunez MD Unavailable [phone] Jason Godinez MD Primary Care Provider + Josh White MD, PhD Unavailable [phone] Magnolia Madison MD Unavailable [phone] Encounter Details Date Type Department Care Team (Late st Contact Info) Description 11/16/2024 Procedure Pass [facility] [place] [address] [address] Social History Tobacco Use Types [...] st Contact Info) Description 05/17/2025 Procedure Pass [address] [address] 11/23/2025 10:30 AM EST Blood Draw Laboratory Services, [address] [address] Magnolia Madison MD [address] [place] [address] [email or web address] 11/23/2025 11:30 AM EST Appointment [address] [address] Ronnell Antunez MD [address] [place] [address] [email or web address] documented as of this encounter Visit Diagnoses Not on filedocumented in this encounter Care Teams Air Breaker Operator Relationship Specialty Start Date End Date Jason Godinez MD [address] [place] [address] PCP - General Internal Medicine 06/17/21 Ronnell Antunez MD [address] [place] [address] [email or web address] Medical Oncology 02/08/21 05/21/25 Josh White MD, PhD [address] [place] [address] [email or web address] Thoracic Surgery 03/18/23 Magnolia Madison MD [address] [place] [address] [email or web address] Medical Oncology 05/22/25 documented as of this encounter Additional Source Comments The information contained in this document represents components of the legal health record. It is not the complete legal health record.[facility]
--- OUTSIDE RECORDS SUMMARY | 2025-09-08 12:56 | XMS_ITS | Encounter Summary ---
Author Organization [facility] Address [address] [facility] [address] [place] [address] Phone Care Team Providers Care Machine Grainer Name Role Phone Lenny Shook MD Unavailable [phone] Ronnell Antunez MD Unavailable [phone] Jason Godinez MD Primary Care Provider + oJsh White MD, PhD Unavailable [phone] Magnolia Madison MD Unavailable [phone] Encounter Details Date Type Department Care Team (Late st Contact Info) Description 07/23/2022 Procedure Pass [address] [address] Social History Tobacco Use Types Packs/Day Years [...] st Contact Info) Description 05/17/2025 Procedure Pass [address] [address] 11/23/2025 10:30 AM EST Blood Draw Laboratory Services, [facility] at [address] [address] Magnolia Madison MD [address] [place] [address] [email or web address] 11/23/2025 11:30 AM EST Appointment [address] [address] Ronnell Antunez MD [address] [place] [address] [email or web address] documented as of this encounter Visit Diagnoses Not on filedocumented in this encounter Care Teams Machine Grainer Relationship Specialty Start Date End Date Jason Godinez MD [address] [place] [address] PCP - General Internal Medicine 06/17/21 Lenny Shook MD [address] [place] [address] Division [place] [address] [email or web address] Thoracic Surgery 11/09/20 Ronnell Antunez MD [address] [place] [address] Durga@[email or web address] Medical Oncology 02/08/21 05/21/25 Josh White MD, PhD [address] [place] [address] [email or web address] Thoracic Surgery 03/18/23 Magnolia Madison MD [address] [place] [address] [email or web address] Medical Oncology 05/22/25 documented as of this encounter Additional Source Comments The information contained in this document represents components of the legal health record. It is not the complete legal health record.[facility]
--- OUTSIDE RECORDS SUMMARY | 2025-09-08 12:56 | XMS_ITS | Encounter Summary ---
Author Organization [facility] Address [address] [facility] [address] [place] [address] Phone Care Team Providers Care Emergency Detail Driver Name Role Phone Lenny Shook MD Unavailable [phone] Ronnell Antunez MD Unavailable [phone] Jason Godinez MD Primary Care Provider + Josh White MD, PhD Unavailable [phone] Magnolia Madison MD Unavailable [phone] Encounter Details Date Type Department Care Team (Late st Contact Info) Description 01/21/2023 Procedure Pass [address] [address] Social History Tobacco Use Types Packs/Day Years Used Date Smoking Tobacco: Never Smokeless Tobacco: Never Alcohol Use Standard Drinks/Week Comments Never 0 (1 standard drink = 0.6 oz pur e alcohol) Comments No Sex and Gender Information Value Date Recorded Sex Assigned at Female 07/09/2021 5:43 PM EDT Legal Sex Female 4:21 PM EST Gender Identity Female 07/09/2021 5:43 PM EDT Sexual Orientation Straight 07/09/2021 5: 43 PM EDT documented as of this encounter Plan of Treatment Upcoming Encounters Date Type Department Care Team (Late st Contact Info) Description 05/17/2025 Procedure Pass [address] [address] 11/23/2025 10:30 AM EST Blood Draw Laboratory Services, [facility] [place] at [address] [address] Magnolia Madison MD [address] [place] [address] [email or web address] 11/23/2025 11:30 AM EST Appointment [address] [address] Ronnell Antunez MD [address] [place] [phone] [email or web address] documented as of this encounter Visit Diagnoses Not on filedocumented in this encounter Care Teams Emergency Detail Driver Relationship Specialty Start Date End Date Jason Godinez MD [address] [place] [address] PCP - General Internal Medicine 06/17/21 Lenny Shook MD [address] [place] [address] Division [place] [address] [email or web address] Thoracic Surgery 11/09/20 Ronnell Antunez MD [address] [place] [address] Durga@[email or web address] Medical Oncology 02/08/21 05/21/25 Josh White MD, PhD [address] [place] [address] [email or web address] Thoracic Surgery 03/18/23 Magnolia Madison MD [address] [place] [address] [email or web address] Medical Oncology 05/22/25 documented as of this encounter Additional Source Comments The information contained in this document represents components of the legal health record. It is not the complete legal health record.[facility]
--- OUTSIDE RECORDS SUMMARY | 2025-09-08 12:56 | XMS_ITS | Encounter Summary ---
Author Organization [facility] Address [address] [facility] [address] [place] [address] Phone Care Team Providers Care Lunch Cook Name Role Phone Lenny Shook MD Unavailable [phone] Ronnell Antunez MD Unavailable [phone] Jason Godinez MD Primary Care Provider + Josh White MD, PhD Unavailable [phone] Magnolia Madison MD Unavailable [phone] Encounter Details Date Type Department Care Team (Late st Contact Info) Description 02/27/2023 Procedure Pass [facility] Periop [address] [place] [address] Social History Tobacco Use Types Packs/Day Years Used Date Smoking Tobacco: Never Smokeless Tobacco: Never Alcohol Use Standard Drinks/Week Comments Never 0 (1 standard drink = 0.6 oz pur e alcohol) Education Answer Date Recorded Are you interested in more education? Not on brian e 02/19/2023 Are you concerned about learning? Not on file 02/19/2023 No 02/19/2023 No 02/19/2023 Intimate Partner Violence Answer Date R ecorded [...] st Contact Info) Description 05/17/2025 Procedure Pass [address] [address] 11/23/2025 10:30 AM EST Blood Draw Laboratory Services, [facility] at [address] [address] Magnolia Madison MD [address] [place] [address] [email or web address] 11/23/2025 11:30 AM EST Appointment [address] [address] Ronnell Antunez MD [address] [place] [address] [email or web address] documented as of this encounter Visit Diagnoses Not on filedocumented in this encounter Care Teams Lunch Cook Relationship Specialty Start Date End Date Jaosn Godinez MD [address] [place] [address] PCP - General Internal Medicine 06/17/21 Lenny Shook MD [address] [place] [address] Division [place] [address] [email or web address] Thoracic Surgery 11/09/20 Ronnell Antunez MD [address] [place] [address] [email or web address] Medical Oncology 02/08/21 05/21/25 Josh White MD, PhD [address] [place] [address] [email or web address] Thoracic Surgery 03/18/23 Magnolia Madison MD [address] [place] [address] [email or web address] Medical Oncology 05/22/25 documented as of this encounter Additional Source Comments The information contained in this document represents components of the legal health record. It is not the complete legal health record.[facility]
--- OUTSIDE RECORDS SUMMARY | 2025-09-08 12:57 | XMS_ITS | Clinical Summary ---
Author Organization [address] [facility] Address [address] [place] [phone] Phone Care Team Providers Care Manufacturing Automation Engineer Name Role Phone Jason Godinez MD Primary Care Provider [phone] Allergies Active Allergy Reactions Criticality Noted Date Comments Amlodipine 05/13/2017 Bad circulation & sob, weakness in arms Hydrochlorothiazide Rash 05/11/2017 Lisinopril 08/01/2025 Other Reaction(s): cough for more than 3 months Metoprolol 09/19/2019 Spironolacton-Hydrochlorothiaz Rash 08/01 Medications hydrOXYzine HCL (ATARAX) 10 mg tablet Take 1 Tablet by mouth at bedtime as needed for Anxiety (insomnia). 4 Active cyanocobalamin , vitamin B-12, 2,500 mcg tablet, sublingual PLACE 1 TABLET SUBLINGUAL DAILY 5 Active folic acid (FOLVITE) 1 mg tablet TOME 1 TABLETA POR V A ORAL TODOS LOS D 5 Active cetirizine (ZyrTEC) 10 mg tablet Take 1 tablet (10 mg total) by mouth 1 (one) time each day. 90 tablet 1 5 11/12/19 26 Active citalopram (CeleXA) 20 mg tablet Take 1 tablet (20 mg total) by mouth 1 (one) time each day in the morning. 90 tablet 1 5 Active ergocalciferol (VITAMIN D-2) 1,250 mcg (50,000 unit) capsule Take 1 capsule (50,000 Units total) by mouth 1 (one) time per week for 8 doses. 8 capsule 5 10/04/20 25 Active cetirizine (ZyrTEC) 10 mg tablet TAKE 1 TABLET BY MOUTH DAILY NEEDED FOR ALLERGIES. 3 08/14/20 25 Discontinu ed(Reorder ) citalopram (CeleXA) 20 mg tablet Take 1 tablet (20 mg total) by mouth 1 (one) time each day in the morning. 90 tablet 1 5 08/14/20 25 Discontinu ed(Reorder ) tranexamic acid (LYSTEDA) 650 mg tablet tabletIndicati ons:menorrhagi a Take 2 tablets (1,300 mg total) by mouth 3 (three) times a day if needed (heavy bleeding) for up to 5 days. 30 each 3 5 08/28/20 Active Problems Problem Noted Date Diagnosed Date Restorationism or spiritual beliefs affecting medical care 10/05/2024 Overview (10/05/2024): Synagogue Prediabetes 08/26/2024 Vitamin D insufficiency 07/04/2024 Malignant neoplasm of upper lobe of left lung ([facility] V24, [facility] V28) 07/24/2021 Cough, persistent 01/16/2021 Radiation pneumonitis ([facility] V24) 12/03/2020 Primary lung adenocarcinoma, left ([facility] V24, CMS/HCC V28) 07/30/2020 Overview (10/05/2024): Incidental finding of lung mass on CXR. [facility] onc - bronch/brushings showed adenoCA. Dr Garcia, Dr Urena, rad onc Anxiety disorder 07/20/2020 Primary malignant neoplasm o f left upper lobe of lung ([facility] V24, [facility] V28) 06/19/2020 Adjustment disorder with anxiety 12/31/2019 Iron deficiency anemia 06/06/2019 Naheed's thyroiditis 06/02/2019 Heart murmur on physical examination 11/17/2017 Personal history of other specified conditions 0 11/17/2017 Overview (10/05/2024): Urethral stenosis Benign essential hypertension 03/16/2017 Thyroid nodule 03/16/2017 Encounters Date Type Department Care Team Description 08/23/2025 10:15 AM EDT Office Visit Obstetrics and Gynecology [address] [phone] Taylor Mason CNM Menorrhagia with irregular cycle (Primary Dx) 08/21/2025 10:25 AM EDT - 08/21/2025 11:59 PM EDT Hospital Encounter XRAY - [address] [phone] Chronic pain of right knee Discharge Disposition: Home or Self Care 08/21/2025 Results Follow-Up Obstetrics and Gynecology [address] [phone] Taylor Mason CNM 08/15/2025 Results Follow-Up Adult Medicine [address] [phone] Jason Godinez MD 08/14/2025 4:30 PM EDT Office Visit Adult Medicine [address] [phone] Jason Godinez MD Anxiety disorder, unspecified type (Primary Dx); Chronic pain of right knee; Iron deficiency anemia due to chronic blood loss; Primary lung adenocarcinoma, left (CMS/HCC V24, CMS/HCC V28) 08/14/2025 1:24 PM EDT - 08/14/2025 11:59 PM EDT Hospital [facility] [address] [place] [address] Menorrhagia with irregular cycle Discharge Disposition: Home or Self Care 08/04/2025 10:15 AM EDT Office Visit Obstetrics & Gynecology - [address] [phone] Taylor Mason CNM Menorrhagia with irregular cycle (Primary Dx) 06/29/2025 1:15 PM EDT Office Visit Orthopedic Surgery - [place] [address] [place] [address] [address] [place] [address] Gerard Jose, DPM Chronic pain of left heel (Primary Dx); Equinus contracture of left ankle; Pes planus of both feet; Plantar fasciitis from Last 3 Months Immunizations Immunization Administration Dates Next Due PPD Test 11/09/2019 Pfizer SARS-CoV-2 COVID-19, mRNA, LNP-S, preservative free 10/29/2021,09/28/2021 Tdap Tetanus diptheria acell ular pertussis (Boostrix; Adacel) 7yo and older 06/03/2020 Surgical History Surgery Date Site/Laterality Comments TUBAL LIGATION PROCEDURE: HISTORICAL TUBAL LIGATION SECTION PROCEDURE: HISTORICAL ; COMMENT: x2 CYSTOSCOPY 2011 PROCEDURE: AR CYSTOURETHROSCOPY; COMMENT: about 2011; in [place] OTHER SURGICAL HISTORY 02/2021 Right PROCEDURE: BREAST [...] for your loved ones. For example, child nutrition assistant or elderly care for an older adult? [...] Livin g Live Births 2 2 2 0 0 0 2 2 Date Outcome GA Total Labor Labor/2nd/3rd Weight Sex Type Anes PTL Leslie A1 A5 Name Clin Term Vag-S pont Living Term Vag-S pont Living Last Filed Vital Signs Vital Sign Reading Time Taken Comments Blood Pressure 120/80 08/23/2025 10:19 AM EDT Pulse 69 08/23/2025 10:19 AM EDT Temperature 36.4 C (97.6 F) 08/14/2025 4:28 PM EDT Respiratory Rate 14 08/23/2025 10:19 AM EDT Oxygen Saturation 98% 08/14/2025 4:28 PM EDT Inhaled Oxygen Concentration - - Weight 66.7 kg (147 lb) 08/23/2025 10:19 AM EDT Height 157.5 cm (5' 2 ) 08/14/2025 4:28 PM EDT Body Mass Index 26.89 08/14/2025 4:28 PM EDT Plan of Treatment Upcoming Encounters Date Type Department Care Team (Late st Contact Info) Description 09/28/2025 1:15 PM EST Office Visit Orthopedic Surgery - [address] [phone] Gerard Jose, DPM [address] [address] Health Maintenance Due Date Last Done Comments Hepatitis B Vaccines (1 of 3 - 19+ 3-dose series) 1997 Pneumococcal Vaccine: Pediatrics (0 to 5 Years) and At-Risk Patients (6 to 49 Years) (1 of 2 - PCV) 1997 COVID-19 Vaccine (3 - Pfizer risk series) 11/26/2021 10/29/2021, 09/28/2021 HIV Screening 10/04/2022 Hepatitis C Screening 10/04/2022 Breast Cancer Screening 01/22/2025 01/22/2023, 02/21 Influenza Vaccine (#1) 2025 Social Influencers of Health Screening 01/31/2026 01/31/2025 Hypertension/CHF/CAD Annual BMP Blood Test 08/14/2026 08/14/2025, 05/17/2025, 11/16/2024, Additional history exists Cervical Cancer Screening: HPV 01/09/2030 01/09/2025, 04/17/2021 DTaP,Tdap,and Td Vaccines (2 - Td or Tdap) 06/03/2030 06/03/2020 Cholesterol Screening (Lipid Panel) 08/14/2030 08/14/2025, 03/09/2023 Colorectal Cancer Screening: Colonoscopy 07/21/2032 07/21/2022 RSV Immunization Adult Patients (1 - 1-dose 75+ series) 2053 Varicella Vaccines Aged Out 10/12/2024 No longer eligible based on patient's age to complete this topic Depression Screening Completed 01/31/2025, 05/10/20 HIB Vaccines Aged Out No longer eligi [...] Procedure Name Priority Date/Time Associated Diagnosis Comments XR KNEE 4+ VIEWS RIGHT Routine 08/21/2025 10:41 AM EDT Chronic pain of right knee COMPREHENSIVE METABOLIC PANEL Routine 08/14/2025 2:08 PM EDT Routine physical examination Screening for diabetes mellitus LIPID PANEL WITH REFLEX TO DIRECT LDL Routine 08/14/2025 2:08 PM EDT Routine physical examination Screening, lipid VITAMIN D 25 HYDROXY Routine 08/14/2025 2:08 PM EDT Vitamin D insufficiency COMPLETE BLOOD COUNT Routine 08/14/2025 2:08 PM EDT Menorrhagia with irregular cycle THYROID STIMULATING HORMONE WITH REFLEX TO FREE T4 AND FREE T3 Routine 08/14/2025 2:08 PM EDT Menorrhagia with irregular cycle US PELVIS NON OB COMPLETE W TRANSVAGINAL Routine 08/14/2025 1:53 PM EDT Menorrhagia with irregular cycle INJECTION TENDON OR LIGAMENT Routine 06/29/2025 1:15 PM EDT Plantar fasciitis HPV WITH REFLEX GENOTYPE Routine 01/09/2025 11:26 AM EDT Encounter for annual routine gynecological examination DEPRESSION SCREENING Routine 05/10/2024 MAMMOGRAPHY Routine 01/22/2023 COLONOSCOPY Routine 07/21/2022 from Last 3 Months or Most Recently Relevant to Health Maintenance Results * XR Knee 4+ Views Right (08/21/2025 10:41 AM EDT) Anatomical Region Laterality Modality Lower Extremities, Knee Right Radiogra phic Imaging 08/21/2025 11:0 1 PM EDT Narrative 08/21/2025 11:01 PM EDT Right knee, 4 views. History pain. There is no evidence of fractures, dislocations or joint effusion. Alignment is maintained. CONCLUSIONS: Unremarkable examination. -------- FINAL REPORT -------- Dictated By: María Sweeney Dictated Date: 08/21/2025 23:01 ET Assigned Physician: María Sweeney Reviewed and Electronically Signed By: María Sweeney Signed Date: 08/21/2025 23:01 ET Workstation ID: [id number] Transcribed By: Self Edit Transcribed Date: 08/21/2025 23:01 ET Procedure Note María Sweeney MD - 08/21/2025 Right knee, 4 views. History pain. There is no evidence of fractures, dislocations or joint effusion.Alignment is maintained. CONCLUSIONS: Unremarkable examination. -------- FINAL REPORT -------- Dictated By: María Sweeney Dictated Date: 08/21/2025 23:01 ET Assigned Physician: María Sweeney Reviewed and Electronically Signed By: María Sweeney Signed Date: 08/21/2025 23:01 ET Workstation ID: [id number] Transcribed By: Self Edit Transcribed Date: 08/21/2025 23:01 ET Jason Godinez MD IMG XR PROCEDURES Final Result * Thyroid stimulating hormone with reflex to free t4 and free t3 (08/14/2025 2:08 PM EDT) [facility] TSH 2.30 0.40 - 4.00 mcIU/mL LAB CHEMISTRY METHOD 08/14/2025 10:45 PM EDT [facility] Blood Venous blood specimen / Unknown Venipuncture / Unknown 08/14/2025 2:08 PM EDT 08/14/2025 2:08 PM EDT Taylor SAAB LAB BLOOD ORDERABLES Final Result [facility] [address] [place] [address], [place] [phone] * Lipid panel with reflex to direct LDL (08/14/2025 2:08 PM EDT) [facility] Cholesterol 169 0 - 200 mg/dL LAB CHEMISTRY METHOD 08/14/2025 7:16 PM EDT [facility] Triglycerides 66 0 - 150 mg/dL LAB CHEMISTRY METHOD 08/14/2025 7:16 PM EDT [facility] HDL 92 >=40 mg/dL LAB CHEMISTRY METHOD 08/14/2025 7:16 PM EDT [facility] LDL Calculated 64 0 - 100 mg/dL LAB CHEMISTRY METHOD 08/14/2025 7:16 PM EDT [facility] Comment:Estimated LDL Calcul ated using equation: Total cholesterol - HDL cholesterol - (Triglycerides/5) VLDL Cholesterol Pablo 13.2 mg/dL LAB CHEMISTRY METHOD 08/14/2025 7:16 PM EDT [facility] Non HDL Chol. (LDL+VLDL) 77 <145 mg/dL LAB CHEMISTRY METHOD 08/14/2025 7:16 PM EDT [facility] Chol/HDL Ratio 1.8 0.0 - 4.4 LAB CHEMISTRY METHOD 08/14/2025 7:16 PM EDT [facility] Blood Venous blood specimen / Unknown Venipuncture / Unknown 08/14/2025 2:08 PM EDT 08/14/2025 2:08 PM EDT us Jason Godinez MD LAB BLOOD ORDERABLES Final Resu lt [facility] [address] [place] [address], * (ABNORMAL) Vitamin D 25 hydroxy (08/14/2025 2:08 PM EDT) Vit D, 25-Hydroxy 14.0(L) 30.0 - 80.0 ng/mL LAB CHEMISTRY METHOD 08/14/2025 10:45 PM EDT [facility] Blood Venous blood specimen / Unknown Venipuncture / Unknown 08/14/2025 2:08 PM EDT 08/14/2025 2:08 PM EDT us Jason Godinez MD LAB BLOOD ORDERABLES Final Resu lt [facility] [address] [place] [address], * (ABNORMAL) Complete blood count (08/14/2025 2:08 PM EDT) [facility] WBC 5.4 4.8 - 10.8 K/mcL LAB HEMETOLOGY METHOD 08/14/2025 3:07 PM EDT [facility] RBC 5.00(H) 3.80 - 4.80 M/mcL LAB HEMETOLOGY METHOD 08/14/2025 3:07 PM EDT [facility] Hemoglobin 13.8 11.5 - 16.0 g/dL LAB HEMETOLOGY METHOD 08/14/2025 3:07 PM EDT [facility] Hematocrit 41.5 35.0 - 47.0 % LAB HEMETOLOGY METHOD 08/14/2025 3:07 PM EDT [facility] MCV 82.3 79.0 - 98.0 FL LAB HEMETOLOGY METHOD 08/14/2025 3:07 PM EDT [facility] MCH 27.4 27.0 - 32.0 pcg LAB HEMETOLOGY METHOD 08/14/2025 3:07 PM EDT [facility] MCHC 33.3 32.0 - 37.0 g/dL LAB HEMETOLOGY METHOD 08/14/2025 3:[facility] RDW 14.3 11.0 - 15.0 % LAB HEMETOLOGY METHOD 08/14/2025 3:07 PM EDT [facility] Platelets 360 130 - 400 K/mcL LAB HEMETOLOGY METHOD 08/14/2025 3:07 PM EDT [facility] MPV 10.2 7.0 - 11.0 FL LAB HEMETOLOGY METHOD 08/14/2025 3:07 PM EDT [facility] NRBC 0.0 <1.0 % LAB HEMETOLOGY METHOD 08/14/2025 3:07 [facility] NRBC Absolute 0.00 <0.10 K/mcL LAB HEMETOLOGY METHOD 08/14/2025 3:07 PM [facility] Blood Venous blood specimen / Unknown Venipuncture / Unknown 08/14/2025 2:08 PM EDT 08/14/2025 2:08 PM EDT Taylor SAAB LAB BLOOD ORDERABLES Final Result [facility] [address] [place] [address], [place] [phone] * Comprehensive metabolic panel (08/14/2025 2:08 PM EDT) Sodium 136 133 - 145 mmol/L LAB CHEMISTRY METHOD 08/14/2025 7:11 PM [facility] Potassium 4.0 3.5 - 5.5 mmol/L LAB CHEMISTRY METHOD 08/14/2025 7:11 PM [facility] Chloride 104 96 - 110 mmol/L LAB CHEMISTRY METHOD 08/14/2025 7:11 PM [facility] CO2 27 21 - 32 mmol/L LAB CHEMISTRY METHOD 08/14/2025 7:11 PM [facility] Anion Gap 5 3 - 11 LAB CHEMISTRY METHOD 08/14/2025 7:11 PM [facility] Glucose 76 70 - 100 mg/dL LAB CHEMISTRY METHOD 08/14/2025 7:11 PM [facility] BUN 10 5 - 25 mg/dL LAB CHEMISTRY METHOD 08/14/2025 7:11 PM [facility] Creatinine 0.90 0.50 - 1.10 mg/dL LAB CHEMISTRY METHOD 08/14/2025 7:11 PM [facility] eGFR 80 >=60 mL/min/1. 73m2 LAB CHEMISTRY METHOD 08/14/2025 7:11 PM EDT [facility] Comment:Calculation based on the Chronic Kidney Disease Epidemiology Collaboration (CKD-EPI) equation refit without adjustment for race. BUN/Creatinine Ratio 11.1 LAB CHEMISTRY METHOD 08/14/2025 7:11 PM EDT [facility] Calcium 9.2 8.5 - 10.5 mg/dL LAB CHEMISTRY METHOD 08/14/2025 7:11 PM T [facility] AST (SGOT) 22 10 - 42 unit/L LAB CHEMISTRY METHOD 08/14/2025 7:11 PM [facility] ALT (SGPT) 32 10 - 60 unit/L LAB CHEMISTRY METHOD 08/14/2025 7:11 PM [facility] Alkaline Phosphatase 64 42 - 121 unit/L LAB CHEMISTRY METHOD 08/14/2025 7:11 PM [facility] Total Protein 6.8 6.0 - 8.0 g/dL LAB CHEMISTRY METHOD 08/14/2025 7:11 PM [facility] Albumin 3.7 3.2 - 5.0 g/dL LAB CHEMISTRY METHOD 08/14/2025 7:11 PM [facility] Total Bilirubin 0.3 0.0 - 1.4 mg/dL LAB CHEMISTRY METHOD 08/14/2025 7:11 PM [facility] Blood Venous blood specimen / Unknown Venipuncture / Unknown 08/14/2025 2:08 PM EDT 08/14/2025 2:08 PM EDT us Jason Godinez MD LAB BLOOD ORDERABLES Final Resu lt [facility] [address] [place] [address], [place] [phone] * US Pelvis Non OB Complete w Transvaginal (08/14/2025 1:53 PM EDT) Anatomical Region Laterality Modality Body, Pelvis Ultrasound 08/14/2025 4:06 PM EDT Impressions 08/14/2025 4:12 PM EDT Small submucosal fibroid. -------- FINAL REPORT -------- Dictated By: Ariadne Ontiveros Dictated Date: 08/14/2025 16:06 ET Assigned Physician: Ariadne Ontiveros Reviewed and Electronically Signed By: Ariadne Ontiveros Signed Date: 08/14/2025 16:12 ET Workstation ID: [id number] Transcribed By: Self Edit Transcribed Date: 08/14/2025 16:06 ET Narrative 08/14/2025 4:12 PM EDT PELVIC ULTRASOUND HISTORY: Menorrhagia. COMPARISON: 03/03/2019 FINDINGS: Both transabdominal and endovaginal pelvic ultrasound were performed. Uterus: 9.3 x 6.1 x 5.4 cm in size. Retroverted position. 1.3 x 1.3 x 1.3 cm heterogeneous hypoechoic lesion in the anterior mid uterus which distorts the endometrium and likely represents a submucosal fibroid. Endometrium: 0.5 cm in thickness which is within normal limits. No focal abnormality identified. Right ovary: Normal in size measuring 2.4 x 1.5 x 1.4 cm without abnormality Left ovary: Normal in size measuring 3.4 x 2.9 x 1.5 cm. It contains a 2.5 x 2.4 x 1.2 cm dominant follicle. Cul-de-sac: Small amount of free fluid which is likely physiologic. Procedure Note Ariadne Ontiveros MD - 08/14/2025 PELVIC ULTRASOUND HISTORY: Menorrhagia. COMPARISON: 03/03/2019 FINDINGS: Both transabdominal and endovaginal pelvic ultrasound were performed. Uterus: 9.3 x 6.1 x 5.4 cm in size. Retroverted position. 1.3 x 1.3 x 1.3cm heterogeneous hypoechoic lesion in the anterior mid uterus whichdistorts the endometrium and likely represents a submucosal fibroid. Endometrium: 0.5 cm in thickness which is within normal limits. No focalabnormality identified. Right ovary: Normal in size measuring 2.4 x 1.5 x 1.4 cm withoutabnormality Left ovary: Normal in size measuring 3.4 x 2.9 x 1.5 cm. It contains a 2.5x 2.4 x 1.2 cm dominant follicle. Cul-de-sac: Small amount of free fluid which is likely physiologic. IMPRESSION: Small submucosal fibroid. -------- FINAL REPORT -------- Dictated By: Ariadne Ontiveros Dictated Date: 08/14/2025 16:06 ET Assigned Physician: Ariadne Ontiveros Reviewed and Electronically Signed By: Ariadne Ontiveros Signed Date: 08/14/2025 16:12 ET Workstation ID: [id number] Transcribed By: Self Edit Transcribed Date: 08/14/2025 16:06 ET Taylor Mason CNM IMG US PROCEDURES Final Res ult * Injection tendon or ligament (06/29/2025 1:15 PM EDT) Narrative Gerard Jose DPM - 06/29/2025 1:15 PM EDT Gerard Jose DPM 06/29/2025 8:34 PM Injection tendon or ligament Indications: pain Details: 25 G needle Medications: 0.5 mL lidocaine (PF) 1 %; 40 mg triamcinolone acetonide 40 mg/mL Informed Consent: Laterality: Left Gerard Jose DPM IN CLINIC/BEDSIDE ORDERABLE S Final Result * HPV with reflex genotype (01/09/2025 11:26 AM EDT) HPV Negative Negative LAB MICROBIOLOGY METHOD 01/11/2025 2:07 PM EDT [facility] Brushing/Spatula Cervix uteri structure / Unknown 01/09/2025 11:26 AM EDT 01/10/2025 6:55 AM EDT Seema Vaughan CNM LAB MOLECULAR DIAGNOSTI CS ORDERABLES Final Result [facility] [address] [place] [address], [place] [phone] * Depression Screening (05/10/2024) Depression Screening abstracted Historical Provider HEALTH MAINTENANCE Final Result * Mammography (01/22/2023) Mammogram Calcifications Anatomical Region Laterality Modality Other Historical Provider HEALTH MAINTENANCE Final Result * Colonoscopy (07/21/2022) Colonoscopy Negative Anatomical Region Laterality Modality Other Historical Provider HEALTH MAINTENANCE Final Result from Last 3 Months or Most Recently Relevant to Health Maintenance [place] [address] [place] [address] [place] [address] Care Teams Manufacturing Automation Engineer Relationship Specialty Start Date End Date Jason Godinez MD [address] [place] [address] PCP - General Internal Medicine 04/17/21
--- OUTSIDE RECORDS SUMMARY | 2025-09-08 12:57 | XMS_ITS | Encounter Summary ---
Author Organization [facility] Address [address] [place] [address] Phone Care Team Providers Care Marketer Name Role Phone Lenny Shook MD Unavailable [phone] Ronnell Antunez MD Unavailable [phone] Jason Godinez MD Primary Care Provider + Josh White MD, PhD Unavailable [phone] Magnolia Madison MD Unavailable [phone] Encounter Details Date Type Department Care Team (Late st Contact Info) Description 10/11/2021 Procedure Pass [employer] [facility], MRI [address] [address] Social History Tobacco Use Types Packs/Day Years [...] PM EDT documented as of this encounter Last Filed Vital Signs Vital Sign Reading Time Taken Comments Blood Pressure - - Pulse - - Temperature - - Respiratory Rate - - Oxygen Saturation - - Inhaled Oxygen Concentration - - Weight 58.1 kg (128 lb) 10/14/2021 1:18 PM EST Height - - Body Mass Index 23.68 02/08/2021 1:11 PM EDT documented in this encounter Plan of Treatment Upcoming Encounters Date Type Department Care Team (Late st Contact Info) Description 05/17/2025 Procedure Pass [address] [address] 11/23/2025 10:30 AM EST Blood Draw Laboratory Services, [facility] at [address] [address] Magnolia Madison MD [address] [place] [address] [email or web address] 11/23/2025 11:30 AM EST Appointment [address] [address] Ronnell Antunez MD [address] [place] [phone] [email or web address] documented as of this encounter Visit Diagnoses Not on filedocumented in this encounter Care Teams Marketer Relationship Specialty Start Date End Date Jason Godinez MD [address] [place] [address] PCP - General Internal Medicine 06/17/21 Lenny Shook MD [address] [place] [address] Division of [place]acic [place] [address] [email or web address] Thoracic Surgery 11/09/20 Ronnell Antunez MD [address] [place] [phone] [email or web address] Medical Oncology 02/08/21 05/21/25 Josh White MD, PhD [address] [place] [phone] [email or web address] Thoracic Surgery 03/18/23 Magnolia Madison MD [address] [place] [address] [email or web address] Medical Oncology 05/22/25 documented as of this encounter Additional Source Comments The information contained in this document represents components of the legal health record. It is not the complete legal health record.[facility]
--- OUTSIDE RECORDS SUMMARY | 2025-09-08 12:58 | XMS_ITS | Encounter Summary ---
Author Organization [facility] Address [address] [place] [address] Phone Care Team Providers Care Rn Palliative Care Name Role Phone Lenny Shook MD Unavailable [phone] Ronnell Antunez MD Unavailable [phone] Jason Godinez MD Primary Care Provider + Josh White MD, PhD Unavailable [phone] Magnolia Madison MD Unavailable [phone] Encounter Details Date Type Department Care Team (Late st Contact Info) Description 03/19/2022 Procedure Pass [address] [address] Social History Tobacco Use Types Packs/Day Years [...] st Contact Info) Description 05/17/2025 Procedure Pass [address] [address] 11/23/2025 10:30 AM EST Blood Draw Laboratory Services, [facility] [place] at [address] [address] Magnolia Madison MD [address] [place] [address] [email or web address] 11/23/2025 11:30 AM EST Appointment [address] [address] Ronnell Antunez MD [address] [place] [phone] [email or web address] documented as of this encounter Visit Diagnoses Not on filedocumented in this encounter Care Teams Rn Palliative Care Relationship Specialty Start Date End Date Jason Godinez MD [address] [place] [address] PCP - General Internal Medicine 06/17/21 Lenny Shook MD [address] [place] [address] Division [place] [address] [email or web address] Thoracic Surgery 11/09/20 Ronnell Antunez MD [address] [place] [address] [email or web address] Medical Oncology 02/08/21 05/21/25 Josh White MD, PhD [address] [place] [phone] [email or web address] Thoracic Surgery 03/18/23 Magnolia Madison MD [address] [place] [address] [email or web address] Medical Oncology 05/22/25 documented as of this encounter Additional Source Comments The information contained in this document represents components of the legal health record. It is not the complete legal health record.[facility]
== END 2025-09-08 10:47 | disposition home or self-care (01) ==
LOC: HO.HPS 10:16
PROVIDERS: PCP Internal Medicine; Visit Provider Hospitalist
DX: C34.12 Malignant neoplasm of upper lobe, left bronchus or lung (principal); R06.09 Other forms of dyspnea
CPT/HCPCS: 99214

== ENCOUNTER → 2025-09-08 10:15 | Outpatient (BNVA) | payer OTHER, SELFPAY | PROVIDERS: PCP Internal Medicine; Visit Provider Hospitalist | DX: C34.12 Malignant neoplasm of upper lobe, left bronchus or lung (principal); R06.09 Other forms of dyspnea | CPT/HCPCS: 99212 ==